=== PATIENT | female | born 1965 ===

== ENCOUNTER 2018-07-21 08:33 | Emergency (ER) | payer OTHER ==
[2018-07-21 08:51] VITALS: BP 107/73; PULSE 77; RESP 18; TEMP 98.2; O2SAT 100
--- NOTE | 2018-07-21 09:11 | C.PDOC ---
History Of Present Illness 52yo female, comes to ER stating she was feeling nauseous. Patient states she was on the bus on her way to have outpatient lab testing and "I was worried about how it would go." She states the nausea spontaneously resolved and now offers no medical complaints. 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 PS ON BUS ON WAY TO HAVE OUTPT LAB TESTING, "I WAS WORRIED ABOUT HOW IT WOULD GO". SPONT RESOLVED NOW ASYMPT EXAM NEG Time Seen by Provider: 07/21/18 09:10 Chief Complaint (Nursing): Anxiety History Per: Patient History/Exam Limitations: no limitations Onset/Duration Of Symptoms: Mins Current Symptoms Are (Timing): Gone Past Medical History Reviewed: Historical Data, Nursing Documentation, Vital Signs Vital Signs: Last Vital Signs Temp 98.2 F 07/21/18 08:48 Pulse 77 07/21/18 08:48 Resp 18 07/21/18 08:48 BP 107/73 07/21/18 08:48 Pulse Ox 100 07/21/18 09:11 - Medical History PMH: No Chronic Diseases Surgical History: No Surg Hx Family History: States: No Known Family Hx Review Of Systems Gastrointestinal: Positive for: Nausea (now resolved) Physical Exam - Physical Exam Appears: Non-toxic Skin: Normal Color Head: Atraumatic, Normacephalic Eye(s): bilateral: Normal Inspection Neck: Supple Chest: Symmetrical Cardiovascular: Rhythm Regular Respiratory: Normal Breath Sounds Gastrointestinal/Abdominal: Normal Exam, Soft, No Tenderness Neurological/Psych: Oriented x3 ED Course And Treatment O2 Sat by Pulse Oximetry: 100 (RA) Pulse Ox Interpretation: Normal Progress Note: Patient with spontaneous resolution of symtpoms; stable for discharge home. Disposition Counseled Patient/Family Regarding: Diagnosis, Need For Followup - Disposition Referrals: [facility] [Outside] [facility] [Outside] Disposition: HOME/ ROUTINE Disposition Time: 09:10 Condition: GOOD Instructions: Anxiety, Adult (DC) Forms: [facility] (Azeri) Print Language: KHMER - Clinical Impression Clinical Impression: Stress reaction - Scribe Statement The provider has reviewed the documentation as recorded by the Scribe Millicent Rodrigues Provider Attestation: All medical record entries made by the Scribe were at my direction and personally dictated by me. I have reviewed the chart and agree that the record accurately reflects my personal performance of the history, physical exam, medical decision making, and the department course for this patient. I have also personally directed, reviewed, and agree with the discharge instructions and disposition.
== END 2018-07-21 09:13 | disposition home or self-care (01) ==
LOC: C.ER 08:33 → MERGE 08:33 → C.ER 09:13
DX: F43.9 Reaction to severe stress, unspecified (principal)

== ENCOUNTER 2018-08-13 10:07 | Day surgery (SDC) | payer SELFPAY ==
[2018-08-11 09:58] VITALS: BMI 26.5
[2018-08-13] MEDS ORDERED: Midazolam 2 MG/2 ML VIAL ONE (11:50)
[2018-08-13] MEDS ORDERED: Absorbable Gelatin Sponge Size 12-7 ONE (11:50)
--- NOTE | 2018-08-13 12:13 | CP.SDSHP ---
Same Day Surgery H & P - History Proposed Procedure: Liver mass biopsy Pre-Op Diagnosis: Liver mass biopsy - Allergies Allergies: Allergies Penicillins Allergy (Verified 07/21/18 08:44) VOMITING headache - Physical Exam Mental Status: Alert & Oriented x3 - Impression Impression: Pt with 2.5 cm liver mass seen on recent CT. US showed an hypoechoic mass in right liver. Plan US guided biopsy. Pt. Evaluated Today:Candidate for Anesthesia & Procedure: Yes (ASA 2 Malampati 2) - Date & Time Date: 08/13/18 Time: 11:50 Short Stay Discharge - Short Stay Discharge Admitting Diagnosis/Reason for Visit: MALIGNANT NEOPLASM OF LIVER, PRIMARY, UNSPECIFIED Disposition: HOME/ ROUTINE
--- NOTE | 2018-08-13 12:15 | PCM.SURG1 ---
Surgeon's Initial Post Op Note - Surgeon's Notes Surgeon: Syed Mejia MD County Manager: NONE Type of Anesthesia: IV Sedation Pre-Operative Diagnosis: Liver mass Operative Findings: US showed a 2.4 cm hypoechoic right hepatic lesion Post-Operative Diagnosis: Liver mass Operation Performed: US guided core biopsy. An 18 g needle was advanced into the mass. Multiple biopsies performed. Tissue return was minimal. Biopsy tract embolized with gelfoam. Specimen/Specimens Removed: 18 g core x 3 Estimated Blood Loss: EBL {In ML}: 4 Blood Products Given: N/A Drains Used: No Drains Post-Op Condition: Good Date of Surgery/Procedure: 08/13/18 Time of Surgery/Procedure: 12:10
--- NOTE | 2018-08-14 10:59 | US ---
PROCEDURE: Date of procedure: 08/13/2018 Procedure: Ultrasound-guided percutaneous core biopsy of liver mass, CPT 50636 Ultrasound guidance for biopsy, CPT 87416 Medications: The patient was sedated by the anesthesiologist with IV sedation and monitoring. HISTORY: Liver Mass TECHNIQUE: Following informed consent and procedure time-out, the patient was placed supine on bed and limited ultrasound showed a 2.5 cm right hepatic mass. After the patient abdomen was prepped and draped in the usual sterile fashion and the skin anesthetized with lidocaine, an 18 gauge core needle was advanced percutaneously under direct ultrasound guidance into the mass. Upon confirmation of needle position, three core specimens were obtained and sent for routine pathology. The biopsy track was then embolized with Gelfoam. A post biopsy ultrasound performed showed no hematoma. A dressing was applied. IMPRESSION: Ultrasound-guided core biopsy of liver mass.
== END 2018-08-13 13:45 | disposition home or self-care (01) ==
LOC: C.SPRAD 10:07
PROVIDERS: ATTEND Radiology Vascular & Interventional Radiology
DX: R16.0 Hepatomegaly, not elsewhere classified (principal)
CPT/HCPCS: 47000; 84703; 88307; J2250; J3010

== ENCOUNTER 2018-12-18 08:54 | Outpatient (CLI) | payer OTHER | END 2018-12-18 08:55 | disposition home or self-care (01) | LOC: C.LAB 08:54 | DX: R31.9 Hematuria, unspecified (principal) ==

== ENCOUNTER 2018-12-18 09:02 | Outpatient (CLI) | payer OTHER | END 2018-12-18 09:03 | disposition home or self-care (01) | LOC: C.LAB 09:02 | DX: R76.8 Other specified abnormal immunological findings in serum (principal) ==